=== PATIENT | female | born 1975 | race Hispanic/Latino ===

== ENCOUNTER 2023-08-26 12:04 | Emergency (ER) | payer OTHER ==
[~2023-08-26] VITALS: Ht 162.6 cm; Wt 67.1 kg
[2023-08-26 12:07] VITALS: BP 140/74; PULSE 57; RESP 16
== END 2023-08-26 13:44 | disposition left against medical advice (07) ==
LOC: EDH 12:04
DX: R10.9 Unspecified abdominal pain (principal); Z53.21 Procedure and treatment not carried out due to patient leaving prior to being seen by health care provider